=== PATIENT | female | born 1950 | race African-American/Black ===

== ENCOUNTER 2021-03-01 14:08 | Inpatient (IN) | payer MEDICARE, MEDICAID ==
[~2021-03-01] VITALS: Ht 167.6 cm; Wt 92.8 kg
[2021-03-01] MEDS ORDERED: ACETAMINOPHEN 325MG TABLET PO STA (15:05)
[2021-03-01] MEDS ORDERED: PIPERACILLIN/TAZ 3.375G PREMIX 50 ML IV ONE (15:15)
[2021-03-01] MEDS ORDERED: SODIUM CHLORIDE 0.9% 1000ML BAG (SEPSIS BOLUS) IV ONE (15:15)
[2021-03-01 16:25] LABS: BASOPHILS % 0.6 % (0.0-2.0); HEMATOCRIT. 35.3 % (36.0-48.0); HEMOGLOBIN. 11.4 g/dL (12.0-16.0); LYMPHOCYTES % 14.2 % (20.0-50.0); MEAN CORPUSCULAR HEMOGLOBIN 30.1 pg (28.0-32.0); MEAN CORPUSCULAR VOLUME 93.3 fL (81.0-99.0); MEAN PLATELET VOLUME 8.4 fl (7.4-10.4); MONOCYTES % 7.3 % (2.0-8.0); NEUTROPHILS % 77.9 % (40.0-76.0); PLATELET 142 x1000/uL (130-400); RED BLOOD CELL COUNT 3.79 mill/uL (4.2-5.4); RED CELL DISTRIBUTION WIDTH 12.7 % (11.6-14.6)
[2021-03-01] MEDS ORDERED: LORAZEPAM 0.5MG TABLET PO PRN (19:45)
[2021-03-01] MEDS ORDERED: HYDROCODONE/ACETAMINOPHEN 5/325MG TABLET PO PRN (19:45)
[2021-03-01] MEDS ORDERED: ONDANSETRON HCL 4MG/2ML INJ IV PRN (19:45)
[2021-03-01] MEDS ORDERED: ACETAMINOPHEN 325MG TABLET PO PRN ×2 (19:45)
[2021-03-01] MEDS ORDERED: DOCUSATE SODIUM 100MG CAPSULE PO PRN (19:45)
[2021-03-01] MEDS ORDERED: NALOXONE HCL 0.4MG/ML VIAL IV PRN (20:00)
[2021-03-01] MEDS ORDERED: AZITHROMYCIN 500MG/250ML 250 ML IV NR (20:00)
[2021-03-02 05:07] LABS: BASOPHILS % 0.4 % (0.0-2.0); HEMOGLOBIN. 13.6 g/dL (12.0-16.0); LYMPHOCYTES % 25.5 % (20.0-50.0); MEAN CORPUSCULAR HEMOGLOBIN 30.3 pg (28.0-32.0); MEAN CORPUSCULAR VOLUME 91.6 fL (81.0-99.0); MEAN PLATELET VOLUME 8.7 fl (7.4-10.4); MONOCYTES % 10.7 % (2.0-8.0); NEUTROPHILS % 63.4 % (40.0-76.0); PLATELET 172 x1000/uL (130-400); RED BLOOD CELL COUNT 4.47 mill/uL (4.2-5.4); RED CELL DISTRIBUTION WIDTH 12.7 % (11.6-14.6)
[2021-03-02] MEDS ORDERED: AZITHROMYCIN 500 MG in DEXT 5% WATER 250 ML IV SCH (09:00)
[2021-03-02] MEDS: DEXT 5%/0.9% NACL 1,000 ML IV SCH ×2 (10:08→20:46)
[2021-03-02] MEDS: ENOXAPARIN 30MG/0.3ML SYR SUBCUT SCH (13:19)
[2021-03-02 16:08] VITALS: BP 116/67
[2021-03-02 16:27] VITALS: BP 116/67
[2021-03-02 20:00] VITALS: BP 105/64
[2021-03-03] VITALS (7 sets, daily range): BP systolic 94–193; BP diastolic 47–165
[2021-03-03] MEDS: DEXT 5%/0.9% NACL 1,000 ML IV SCH ×2 (09:10→20:42)
[2021-03-03] MEDS: AZITHROMYCIN 500 MG in DEXT 5% WATER 250 ML IV SCH (13:01)
[2021-03-03] MEDS: ENOXAPARIN 30MG/0.3ML SYR SUBCUT SCH (13:01)
[2021-03-03] MEDS: DEXAMETHASONE 4MG/ML 1ML VIAL IV SCH (20:43)
[2021-03-04] VITALS: BP 133/74
[2021-03-04 04:00] VITALS: BP 150/106
[2021-03-04 08:10] LABS: ANTI-NUCLEAR ANTIBODIES DIRECT Negative (Negative)
[2021-03-04] MEDS: DEXAMETHASONE 4MG/ML 1ML VIAL IV SCH (09:00)
[2021-03-04] MEDS: AZITHROMYCIN 500 MG in DEXT 5% WATER 250 ML IV SCH (09:26)
[2021-03-04] MEDS: DEXT 5%/0.9% NACL 1,000 ML IV SCH (09:27)
[2021-03-04 10:46] LABS: BASOPHILS % 0.1 % (0.0-2.0); HEMATOCRIT. 41.2 % (36.0-48.0); HEMOGLOBIN. 13.7 g/dL (12.0-16.0); LYMPHOCYTES % 13.1 % (20.0-50.0); MEAN CORPUSCULAR HEMOGLOBIN 30.2 pg (28.0-32.0); MEAN CORPUSCULAR VOLUME 90.6 fL (81.0-99.0); MEAN PLATELET VOLUME 8.5 fl (7.4-10.4); MONOCYTES % 8.8 % (2.0-8.0); PLATELET 226 x1000/uL (130-400); RED BLOOD CELL COUNT 4.55 mill/uL (4.2-5.4); RED CELL DISTRIBUTION WIDTH 13.1 % (11.6-14.6)
[2021-03-04 11:00] LABS: CHLORIDE 118 mEq/L (98-107)
[2021-03-04] MEDS ORDERED: ALBUTEROL 6.7GM HFA INHALER ORI PRN (11:30)
[2021-03-04] MEDS ORDERED: FUROSEMIDE 40MG/4ML VIAL IVP NR (11:39)
[2021-03-04 12:00] VITALS: BP 129/79
[2021-03-04 12:54] LABS: BG CARBOXYHEMOGLOBIN 0.2 % (0.5-1.5); BG DEOXYHEMOGLOBIN 11.3 % (0.0-5.0); BG FRACTION INSPIRED OXYGEN 100; BG HCO3 ACT 20.6 mmol/L (22.0-26.0); BG METHEMOGLOBIN 0.6 % (0.0-1.5); BG OXYGEN SATURATION 88.6 % (92.0-98.5); BG OXYHEMOGLOBIN 87.9 % (94.0-97.0); BG PCO2 33.2 mmHg (35.0-45.0); BG PH 7.411 (7.350-7.450); BG PO2 56.1 mmHg (75.0-100.0); BG SAMPLE SITE RIGHT RADIAL; BG VENT MODE MASK - NRB
[2021-03-04] MEDS: ENOXAPARIN 30MG/0.3ML SYR SUBCUT SCH (14:41)
[2021-03-04] MEDS ORDERED: GUAIFENESIN-DM 200MG-20MG/10ML UDC PO PRN (15:00)
[2021-03-04 16:00] VITALS: BP 118/79
[2021-03-04 20:00] VITALS: BP 140/93
[2021-03-04] MEDS: GUAIFENESIN 600MG ER TABLET PO SCH (21:48)
[2021-03-05] VITALS: BP 151/93
[2021-03-05 04:00] VITALS: BP 153/92
[2021-03-05 08:00] VITALS: BP 129/84
[2021-03-05] MEDS: GUAIFENESIN 600MG ER TABLET PO SCH ×2 (08:27→21:20)
[2021-03-05] MEDS: AZITHROMYCIN 500 MG in DEXT 5% WATER 250 ML IV SCH (08:27)
[2021-03-05] MEDS: DEXAMETHASONE 4MG/ML 1ML VIAL IV SCH (08:27)
[2021-03-05 08:32] LABS: BASOPHILS % 0.1 % (0.0-2.0); HEMATOCRIT. 42.6 % (36.0-48.0); HEMOGLOBIN. 14.3 g/dL (12.0-16.0); MEAN CORPUSCULAR HEMOGLOBIN 30.4 pg (28.0-32.0); MEAN CORPUSCULAR VOLUME 90.6 fL (81.0-99.0); MEAN PLATELET VOLUME 8.4 fl (7.4-10.4); MONOCYTES % 11.8 % (2.0-8.0); NEUTROPHILS % 79.1 % (40.0-76.0); PLATELET 207 x1000/uL (130-400); RED CELL DISTRIBUTION WIDTH 12.7 % (11.6-14.6)
[2021-03-05 12:00] VITALS: BP 127/82
[2021-03-05] MEDS ORDERED: SODIUM CHLORIDE 0.45% 1,000 ML IV ONE (12:45)
[2021-03-05] MEDS: ENOXAPARIN 30MG/0.3ML SYR SUBCUT SCH (13:00)
[2021-03-05 16:00] VITALS: BP 150/94
[2021-03-05 20:00] VITALS: BP 139/95
[2021-03-06] VITALS (7 sets, daily range): BP systolic 124–162; BP diastolic 85–99
[2021-03-06 07:55] LABS: CHLORIDE 115 mEq/L (98-107)
[2021-03-06 07:57] LABS: HEMATOCRIT. 44.3 % (36.0-48.0); HEMOGLOBIN. 14.8 g/dL (12.0-16.0); MEAN CORPUSCULAR HEMOGLOBIN 30.2 pg (28.0-32.0); MEAN CORPUSCULAR VOLUME 90.1 fL (81.0-99.0); MEAN PLATELET VOLUME 8.4 fl (7.4-10.4); PLATELET 166 x1000/uL (130-400); RED BLOOD CELL COUNT 4.92 mill/uL (4.2-5.4)
[2021-03-06] MEDS: GUAIFENESIN 600MG ER TABLET PO SCH ×2 (09:22→20:41)
[2021-03-06] MEDS: DEXAMETHASONE 4MG/ML 1ML VIAL IV SCH (10:41)
[2021-03-06 10:59] LABS: PLATELET ESTIMATE NORMAL
[2021-03-06] MEDS: ENOXAPARIN 30MG/0.3ML SYR SUBCUT SCH (13:11)
[2021-03-06] MEDS: DEXT 5%/0.45% NACL 1000ML 1,000 ML IV SCH (15:58)
[2021-03-07] VITALS: BP 140/93
[2021-03-07 04:00] VITALS: BP 167/110
[2021-03-07] MEDS: CLONIDINE 0.1MG TABLET PO PRN (05:04)
[2021-03-07 06:48] LABS: HEMATOCRIT. 44.9 % (36.0-48.0); HEMOGLOBIN. 15.1 g/dL (12.0-16.0); MEAN CORPUSCULAR HEMOGLOBIN 30.5 pg (28.0-32.0); MEAN CORPUSCULAR VOLUME 90.7 fL (81.0-99.0); MEAN PLATELET VOLUME 8.8 fl (7.4-10.4); PLATELET 122 x1000/uL (130-400); RED BLOOD CELL COUNT 4.95 mill/uL (4.2-5.4); RED CELL DISTRIBUTION WIDTH 12.7 % (11.6-14.6)
[2021-03-07 08:00] VITALS: BP 157/94
[2021-03-07] MEDS: GUAIFENESIN 600MG ER TABLET PO SCH ×2 (09:19→21:05)
[2021-03-07] MEDS: DEXAMETHASONE 4MG/ML 1ML VIAL IV SCH (10:16)
[2021-03-07 12:00] VITALS: BP 143/97
[2021-03-07 12:43] LABS: PLATELET ESTIMATE SLIGHTLY DECREASED
[2021-03-07] MEDS: ENOXAPARIN 30MG/0.3ML SYR SUBCUT SCH (13:49)
[2021-03-07 16:00] VITALS: BP 138/95
[2021-03-07] MEDS: DEXT 5%/0.45% NACL 1000ML 1,000 ML IV SCH (17:39)
[2021-03-07 20:00] VITALS: BP 150/104
[2021-03-08] VITALS: BP 155/99
[2021-03-08 04:00] VITALS: BP 144/100
[2021-03-08 08:00] VITALS: BP 144/94
[2021-03-08] MEDS: GUAIFENESIN 600MG ER TABLET PO SCH ×2 (08:45→20:22)
[2021-03-08] MEDS: DEXAMETHASONE 4MG/ML 1ML VIAL IV SCH (08:45)
[2021-03-08] MEDS: DEXT 5%/0.45% NACL 1000ML 1,000 ML IV SCH (11:11)
[2021-03-08 12:00] VITALS: BP 153/99
[2021-03-08] MEDS: ENOXAPARIN 30MG/0.3ML SYR SUBCUT SCH (12:07)
[2021-03-08 16:00] VITALS: BP 135/91
[2021-03-08 22:14] VITALS: BP 144/94
[2021-03-09] VITALS: BP 148/88
[2021-03-09] MEDS: DEXT 5%/0.45% NACL 1000ML 1,000 ML IV SCH ×2 (03:55→21:25)
[2021-03-09 04:00] VITALS: BP 151/93
[2021-03-09 08:00] VITALS: BP 132/89
[2021-03-09] MEDS: DEXAMETHASONE 4MG/ML 1ML VIAL IV SCH (08:11)
[2021-03-09] MEDS: GUAIFENESIN 600MG ER TABLET PO SCH ×2 (08:11→21:25)
[2021-03-09 12:00] VITALS: BP 131/93
[2021-03-09] MEDS: ENOXAPARIN 30MG/0.3ML SYR SUBCUT SCH (13:04)
[2021-03-09 16:00] VITALS: BP 157/96
[2021-03-09 20:42] VITALS: BP 140/90
[2021-03-10 00:37] VITALS: BP 160/97
[2021-03-10 04:00] VITALS: BP 113/70
[2021-03-10 08:00] VITALS: BP 155/102
[2021-03-10] MEDS: DEXAMETHASONE 4MG/ML 1ML VIAL IV SCH (08:10)
[2021-03-10] MEDS: GUAIFENESIN 600MG ER TABLET PO SCH ×2 (08:10→21:31)
[2021-03-10 12:00] VITALS: BP 144/89
[2021-03-10] MEDS: ENOXAPARIN 30MG/0.3ML SYR SUBCUT SCH (12:20)
[2021-03-10] MEDS: DEXT 5%/0.45% NACL 1000ML 1,000 ML IV SCH (12:21)
[2021-03-10 16:00] VITALS: BP 151/98
[2021-03-10 20:00] VITALS: BP 146/68
[2021-03-11] VITALS: BP 153/85
[2021-03-11] MEDS: DEXT 5%/0.45% NACL 1000ML 1,000 ML IV SCH ×2 (01:42→21:07)
[2021-03-11 04:00] VITALS: BP 163/83
[2021-03-11] MEDS: CLONIDINE 0.1MG TABLET PO PRN (05:20)
[2021-03-11 08:00] VITALS: BP 122/78
[2021-03-11] MEDS: DEXAMETHASONE 4MG/ML 1ML VIAL IV SCH (09:25)
[2021-03-11] MEDS: GUAIFENESIN 600MG ER TABLET PO SCH ×2 (09:25→21:07)
[2021-03-11 12:00] VITALS: BP 124/88
[2021-03-11] MEDS: ENOXAPARIN 30MG/0.3ML SYR SUBCUT SCH (13:14)
[2021-03-11 16:00] VITALS: BP 119/69
[2021-03-11 20:00] VITALS: BP 124/79
[2021-03-11 20:54] LABS: HEMATOCRIT. 44.3 % (36.0-48.0); HEMOGLOBIN. 14.4 g/dL (12.0-16.0); MEAN CORPUSCULAR HEMOGLOBIN 29.9 pg (28.0-32.0); MEAN PLATELET VOLUME 9.6 fl (7.4-10.4); PLATELET 182 x1000/uL (130-400); RED BLOOD CELL COUNT 4.81 mill/uL (4.2-5.4)
[2021-03-11 20:55] LABS: CHLORIDE 115 mEq/L (98-107)
[2021-03-11 21:19] LABS: PLATELET ESTIMATE NORMAL
[2021-03-12] VITALS: BP 136/78
[2021-03-12 04:00] VITALS: BP 143/91
[2021-03-12 08:00] VITALS: BP 134/81
[2021-03-12] MEDS: DEXAMETHASONE 4MG/ML 1ML VIAL IV SCH ×2 (09:00→09:51)
[2021-03-12 09:08] LABS: HEMATOCRIT. 42.2 % (36.0-48.0); HEMOGLOBIN. 14.1 g/dL (12.0-16.0); MEAN CORPUSCULAR HEMOGLOBIN 30.1 pg (28.0-32.0); MEAN PLATELET VOLUME 9.5 fl (7.4-10.4); PLATELET 205 x1000/uL (130-400); RED BLOOD CELL COUNT 4.68 mill/uL (4.2-5.4); RED CELL DISTRIBUTION WIDTH 12.9 % (11.6-14.6)
[2021-03-12 09:43] LABS: CHLORIDE 114 mEq/L (98-107)
[2021-03-12] MEDS: GUAIFENESIN 600MG ER TABLET PO SCH ×2 (09:51→20:30)
[2021-03-12 12:00] VITALS: BP 127/79
[2021-03-12] MEDS: ENOXAPARIN 30MG/0.3ML SYR SUBCUT SCH (12:20)
[2021-03-12] MEDS: DEXT 5%/0.45% NACL 1000ML 1,000 ML IV SCH (14:55)
[2021-03-12 15:37] LABS: PLATELET ESTIMATE NORMAL
[2021-03-12 16:00] VITALS: BP 126/77
[2021-03-12 20:00] VITALS: BP 120/76
[2021-03-13] VITALS: BP 140/81
[2021-03-13 04:00] VITALS: BP 137/93
[2021-03-13] MEDS: DEXT 5%/0.45% NACL 1000ML 1,000 ML IV SCH ×3 (07:55→21:18)
[2021-03-13 07:59] VITALS: BP 135/89
[2021-03-13 08:11] LABS: HEMATOCRIT. 39.8 % (36.0-48.0); HEMOGLOBIN. 13.5 g/dL (12.0-16.0); MEAN CORPUSCULAR HEMOGLOBIN 30.2 pg (28.0-32.0); MEAN CORPUSCULAR VOLUME 89.2 fL (81.0-99.0); MEAN PLATELET VOLUME 9.4 fl (7.4-10.4); PLATELET 222 x1000/uL (130-400); RED BLOOD CELL COUNT 4.46 mill/uL (4.2-5.4); RED CELL DISTRIBUTION WIDTH 12.7 % (11.6-14.6)
[2021-03-13] MEDS: GUAIFENESIN 600MG ER TABLET PO SCH ×2 (08:29→21:17)
[2021-03-13] MEDS: ENOXAPARIN 30MG/0.3ML SYR SUBCUT SCH ×2 (08:29→21:17)
[2021-03-13] MEDS: DEXAMETHASONE 4MG/ML 1ML VIAL IV SCH ×2 (08:30→08:43)
[2021-03-13 08:50] LABS: CHLORIDE 115 mEq/L (98-107)
[2021-03-13 12:00] VITALS: BP 126/84
[2021-03-13 15:36] LABS: PLATELET ESTIMATE NORMAL
[2021-03-13 16:11] LABS: BG BASE EXCESS -2.4 mmol/L (-2.0-2.0); BG CARBOXYHEMOGLOBIN 0.6 % (0.5-1.5); BG DEOXYHEMOGLOBIN 5.4 % (0.0-5.0); BG FRACTION INSPIRED OXYGEN 44; BG HCO3 ACT 21.2 mmol/L (22.0-26.0); BG METHEMOGLOBIN 0.3 % (0.0-1.5); BG OXYGEN SATURATION 94.6 % (92.0-98.5); BG OXYHEMOGLOBIN 93.7 % (94.0-97.0); BG PCO2 33.3 mmHg (35.0-45.0); BG PH 7.421 (7.350-7.450); BG PO2 71.9 mmHg (75.0-100.0); BG SAMPLE SITE RIGHT RADIAL; BG TOTAL HEMOGLOBIN 14.5 g/dL (12.0-18.0); BG VENT MODE NASAL CANNULA
[2021-03-13] MEDS: METHYLPREDNISOLONE SOD SUCC 40 MG/ML VIAL IV SCH ×2 (18:23→21:17)
[2021-03-13 20:00] VITALS: BP 147/88
[2021-03-14] VITALS (7 sets, daily range): BP systolic 115–155; BP diastolic 48–98
[2021-03-14] MEDS: METHYLPREDNISOLONE SOD SUCC 40 MG/ML VIAL IV SCH ×3 (06:25→20:36)
[2021-03-14] MEDS: GUAIFENESIN 600MG ER TABLET PO SCH ×2 (09:16→20:36)
[2021-03-14] MEDS: ENOXAPARIN 30MG/0.3ML SYR SUBCUT SCH ×2 (09:17→20:36)
[2021-03-14] MEDS: DEXT 5%/0.45% NACL 1000ML 1,000 ML IV SCH (17:15)
[2021-03-14] MEDS ORDERED: IPRATROPIUM/ALBUTEROL 0.5-3(2.5)MG/3ML NEB HHN PRN (22:00)
[2021-03-15] VITALS (8 sets, daily range): BP systolic 112–160; BP diastolic 62–96
[2021-03-15] MEDS: CLONIDINE 0.1MG TABLET PO PRN (04:27)
[2021-03-15] MEDS: METHYLPREDNISOLONE SOD SUCC 40 MG/ML VIAL IV SCH ×3 (05:04→22:10)
[2021-03-15] MEDS: GUAIFENESIN 600MG ER TABLET PO SCH ×2 (08:38→22:10)
[2021-03-15] MEDS: DEXT 5%/0.45% NACL 1000ML 1,000 ML IV SCH (08:39)
[2021-03-15] MEDS: ENOXAPARIN 30MG/0.3ML SYR SUBCUT SCH ×2 (08:39→21:00)
[2021-03-15] MEDS: IPRATROPIUM/ALBUTEROL 0.5-3(2.5)MG/3ML NEB HHN SCH (11:39)
[2021-03-16] VITALS: BP 157/89
[2021-03-16] MEDS: IPRATROPIUM/ALBUTEROL 0.5-3(2.5)MG/3ML NEB HHN SCH ×4 (01:25→21:14)
[2021-03-16 07:05] VITALS: BP 161/82
[2021-03-16] MEDS: METHYLPREDNISOLONE SOD SUCC 40 MG/ML VIAL IV SCH ×3 (07:09→21:03)
[2021-03-16 08:00] VITALS: BP 145/73
[2021-03-16 08:33] LABS: HEMATOCRIT. 47.1 % (36.0-48.0); HEMOGLOBIN. 16.1 g/dL (12.0-16.0); MEAN CORPUSCULAR VOLUME 90.2 fL (81.0-99.0); PLATELET 360 x1000/uL (130-400); RED BLOOD CELL COUNT 5.22 mill/uL (4.2-5.4); RED CELL DISTRIBUTION WIDTH 12.9 % (11.6-14.6)
[2021-03-16] MEDS: ENOXAPARIN 30MG/0.3ML SYR SUBCUT SCH ×2 (09:12→20:42)
[2021-03-16] MEDS: GUAIFENESIN 600MG ER TABLET PO SCH ×2 (09:15→20:41)
[2021-03-16 09:32] LABS: CHLORIDE 115 mEq/L (98-107)
[2021-03-16] MEDS ORDERED: DEXT 5%/0.45% NACL 1000ML 1,000 ML IV ONE (11:30)
[2021-03-16 12:00] VITALS: BP 159/88
[2021-03-16 16:00] VITALS: BP 148/89
[2021-03-16 17:20] LABS: PLATELET ESTIMATE NORMAL
[2021-03-16 20:00] VITALS: BP 145/92
[2021-03-16] MEDS: CLONIDINE 0.1MG TABLET PO PRN (20:46)
[2021-03-17] VITALS: BP 159/103
[2021-03-17 04:00] VITALS: BP 153/92
[2021-03-17] MEDS: CLONIDINE 0.1MG TABLET PO PRN (04:41)
[2021-03-17] MEDS: METHYLPREDNISOLONE SOD SUCC 40 MG/ML VIAL IV SCH ×2 (06:03→13:21)
[2021-03-17 07:59] LABS: HEMATOCRIT. 44.4 % (36.0-48.0); HEMOGLOBIN. 14.9 g/dL (12.0-16.0); MEAN CORPUSCULAR HEMOGLOBIN 30.4 pg (28.0-32.0); MEAN CORPUSCULAR VOLUME 90.6 fL (81.0-99.0); MEAN PLATELET VOLUME 9.4 fl (7.4-10.4); PLATELET 331 x1000/uL (130-400); RED CELL DISTRIBUTION WIDTH 12.9 % (11.6-14.6)
[2021-03-17 08:00] VITALS: BP 151/90
[2021-03-17] MEDS: IPRATROPIUM/ALBUTEROL 0.5-3(2.5)MG/3ML NEB HHN SCH ×3 (08:07→21:16)
[2021-03-17 09:01] LABS: CHLORIDE 115 mEq/L (98-107)
[2021-03-17] MEDS: GUAIFENESIN 600MG ER TABLET PO SCH (10:13)
[2021-03-17] MEDS: ENOXAPARIN 30MG/0.3ML SYR SUBCUT SCH (10:14)
[2021-03-17 12:00] VITALS: BP 144/93
[2021-03-17] MEDS ORDERED: ALBU6.7H9 INH ×2 (13:25→13:28)
[2021-03-17] MEDS ORDERED: MED4 MT ×2 (13:25→13:28)
[2021-03-17 13:41] LABS: PLATELET ESTIMATE NORMAL
[2021-03-17 16:00] VITALS: BP 141/88
[2021-03-17 16:31] LABS: BG BASE EXCESS -2.4 mmol/L (-2.0-2.0); BG CARBOXYHEMOGLOBIN 0.3 % (0.5-1.5); BG DEOXYHEMOGLOBIN 14.7 % (0.0-5.0); BG HCO3 ACT 19.9 mmol/L (22.0-26.0); BG METHEMOGLOBIN 0.2 % (0.0-1.5); BG OXYGEN SATURATION 85.2 % (92.0-98.5); BG OXYHEMOGLOBIN 84.8 % (94.0-97.0); BG PCO2 28.3 mmHg (35.0-45.0); BG PH 7.464 (7.350-7.450); BG PO2 47.4 mmHg (75.0-100.0); BG SAMPLE SITE RIGHT RADIAL; BG TOTAL HEMOGLOBIN 15.6 g/dL (12.0-18.0); BG VENT MODE ROOM AIR
[2021-03-17 20:46] VITALS: BP 142/84
== END 2021-03-17 22:30 | disposition home or self-care (01) | DRG 871 ==
LOC: ER 14:08 → MICUSO 18:19 → 7WST 03-02 16:27 → 8WST 03-15 10:38
PROVIDERS: ADMIT Internal Medicine; ATTEND Internal Medicine
DX: A41.89 Other specified sepsis (principal); U07.1 COVID-19; J12.82 Pneumonia due to coronavirus disease 2019; J96.01 Acute respiratory failure with hypoxia; N17.9 Acute kidney failure, unspecified; E87.0 Hyperosmolality and hypernatremia; J44.0 Chronic obstructive pulmonary disease with (acute) lower respiratory infection; E46 Unspecified protein-calorie malnutrition; E11.9 Type 2 diabetes mellitus without complications; I10 Essential (primary) hypertension; E86.9 Volume depletion, unspecified; Z96.643 Presence of artificial hip joint, bilateral; Z96.652 Presence of left artificial knee joint; I95.9 Hypotension, unspecified; R74.01 Elevation of levels of liver transaminase levels; R65.20 Severe sepsis without septic shock
CPT/HCPCS: 36415; 36600; 71045; 76770; 80048; 80053; 80076; 82375; 82550; 82805; 82962; 83605; 83880; 84145; 84484; 85025; 85379; 86038; 86140; 86160; 87426; 93005; 94618; 94640; 99285; C1893; J0456; J1100; J1650; J1940; J2405; J2543; J2920; J7030; J7040; J7042; J7060